=== PATIENT | female | born 1985 | race African-American/Black ===

== ENCOUNTER 2017-01-24 14:14 | Emergency (ER) | payer MEDICAID, OTHER ==
[~2017-01-24] VITALS: Ht 165.1 cm; Wt 58.0 kg
[2017-01-24 14:30] VITALS: Ht 165.1 cm; Wt 58.0 kg
--- NOTE | 2017-01-24 15:43 | ERD ---
ER Documentation Chief Complaint Date/Time DATE: 01/24/17 TIME: 15:42 Chief Complaint CAME IN VIA INTAKE AND 10 WEEKS WITH ABDOMINAL PAIN HPI 31-year-old female who is A0 approximately 10 weeks presents with left-sided pelvic pain that started approximately a week ago. She describes as achy, radiating to her back, moderate pain is worse with movement. Her last menstrual period was on November 12, she does not have a formal OB but has had a ultrasound done at an outside clinic which she states was normal. She denies any vaginal discharge that is abnormal, vaginal bleeding. She denies fevers or chills, vomiting or diarrhea. ROS All systems reviewed and are negative except as per history of present illness. Medications Home Meds Active Scripts Nitrofurantoin Monohyd Macrocr* (Macrobid*) 100 Mg Capsr, 100 MG PO BID for 5 Days, CAP Prov:DAYSI SHAVER PA-C 01/24/17 Docusate Sodium* (Colace*) 100 Mg Capsule, 100 MG PO TID, #30 CAP Prov:DAYSI SHAVER PA-C 01/24/17 PMhx/Soc Medical and Surgical Hx: pt denies Medical Hx Hx Alcohol Use: No Hx Substance Use: No Hx Tobacco Use: No Physical Exam Vitals Vital Signs Date Time Temp Pulse Resp B/P Pulse Ox O2 Delivery O2 Flow Rate FiO2 01/24/17 14:30 98.5 76 18 141/69 100 Physical Exam General: Well-developed, well-nourished. The patient appears in no acute distress. HEENT: Head is normocephalic, atraumatic. No scleral icterus. Neck: Supple. Nontender. Lungs: Clear to auscultation. Normal air movement. Heart: Regular rate and rhythm. S1 and S2 are normal. No murmurs, gallops, or rubs. Abdomen: Soft, tender in the left lower quadrant, there is no rebound pain or masses nondistended. Bowel sounds are normoactive. Extremities: No clubbing or cyanosis. Normal pulses. Moving extremities x 4. No weakness. Neurologic: Alert and oriented 3. No focal deficits. Skin: Normal turgor. No rash or lesions. Result Diagram: 01/24/17 1602 01/24/17 1602 Results 24 hrs Laboratory Tests Test 01/24/17 15:58 01/24/17 16:02 Urine Color YELLOW Urine Clarity SLIGHTLY CLOUDY Urine pH 7.0 Urine Specific [place] 1.006 Urine Ketones NEGATIVEmg/dL Urine Nitrite NEGATIVEmg/dL Urine Bilirubin NEGATIVEmg/dL Urine Urobilinogen NEGATIVEmg/dL Urine Leukocyte Esterase 2+Nolberto/ul Urine Microscopic RBC 1/HPF Urine Microscopic WBC 2/HPF Urine Squamous Epithelial Cells FEW/HPF Urine Bacteria FEW/HPF Urine Hemoglobin NEGATIVEmg/dL Urine Glucose NEGATIVEmg/dL Urine Total Protein NEGATIVEmg/dl White Blood Count 10.010^3/ul Red Blood Count 4.6910^6/ul Hemoglobin 10.4g/dl Hematocrit 35.1% Mean Corpuscular Volume 74.8fl Mean Corpuscular Hemoglobin 22.2pg Mean Corpuscular Hemoglobin Concent 29.6g/dl Red Cell Distribution Width 20.2% Platelet Count 08013^3/UL Mean Platelet Volume 10.2fl Neutrophils % 83.6% Lymphocytes % 9.4% Monocytes % 5.5% Eosinophils % 0.9% Basophils % 0.2% Nucleated Red Blood Cells % 0.0/100WBC Neutrophils # 8.310^3/ul Lymphocytes # 0.910^3/ul Monocytes # 0.610^3/ul Eosinophils # 0.110^3/ul Basophils # 0.010^3/ul Nucleated Red Blood Cells # 0.010^3/ul Sodium Level 139mmol/L Potassium Level 4.4mmol/L Chloride Level 103mmol/L Carbon Dioxide Level 24mmol/L Anion Gap 16 Blood Urea Nitrogen 6mg/dl Creatinine 0.50mg/dl Glucose Level 98mg/dl Calcium Level 9.9mg/dl Total Bilirubin 0.1mg/dl Direct Bilirubin 0.00mg/dl Indirect Bilirubin 0.1mg/dl Aspartate Amino Transf (AST/SGOT) 17IU/L Alanine Aminotransferase (ALT/SGPT) 27IU/L Alkaline Phosphatase 55IU/L Total Protein 8.8g/dl Albumin 4.7g/dl Globulin 4.10g/dl Albumin/Globulin Ratio 1.14 Lipase 55U/L DIAGNOSTIC IMAGING REPORT Patient: GREG 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 CLINICAL INDICATION: Positive test. Left pelvic pain. TECHNIQUE: Ultrasound of the pelvis was performed with transabdominal sonography in the axial and sagittal planes. COMPARISON: No prior study is available for comparison. FINDINGS: There is a single intrauterine gestational sac. pole and yolk sac are present. There is heart motion. heart rate is 166 beats per minute. [place]-rump length is 3.69 cm. Menstrual age by ultrasound dates is 10 weeks 4 days. This indicates an expected date of delivery of 08/18/2017. The right ovary appears normal measuring 3.5 x 2.4 x 2.9 cm. The left ovary is not visualized. Color Doppler and pulsed Doppler sonography demonstrate normal flow to the right ovary. There is no other pelvic mass or free fluid. IMPRESSION: 1. Single live intrauterine gestation of 10 weeks 4 days menstrual age by ultrasound dates. 2. Expected date of delivery is 08/18/2017. RPTAT: QQ .Major Saeed MD, MD Date Time Electronically viewed and signed by .Major Saeed MD, MD on 01/24/2017 16:12 .R/ CC: DAYSI SHAVER PA-C Procedures/MDM 31 year old female comes in with left sided pelvic pain, with a single live intrauterine , normal pelvic ultrasound today. All labs are normal, and physical examination is benign are ongoing for a week, likely due to constipation. Patient's urine also shows asymptomatic bacteruria. Says. No signs of acute appendicitis, diverticulitis, bowel screen, volvulus or surgical abdominal process. She is follow-up with her OB with results. Departure Diagnosis: Primary Impression: First trimester Additional Impressions: Abdominal pain UTI (urinary tract infection) Condition: Good DAYSI SHAVER PA-C Jan 24, 2017 15:43
--- NOTE | 2017-01-24 16:12 | RADRPT ---
PROCEDURE: OB Ultrasound. CLINICAL INDICATION: Positive test. Left pelvic pain. TECHNIQUE: Ultrasound of the pelvis was performed with transabdominal sonography in the axial and sagittal planes. COMPARISON: No prior study is available for comparison. FINDINGS: There is a single intrauterine gestational sac. pole and yolk sac are present. There is heart motion. heart rate is 166 beats per minute. [place]-rump length is 3.69 cm. Menstrual age by ultrasound dates is 10 weeks 4 days. This indicates an expected date of delivery of 08/18/2017. The right ovary appears normal measuring 3.5 x 2.4 x 2.9 cm. The left ovary is not visualized. Color Doppler and pulsed Doppler sonography demonstrate normal flow to the right ovary. There is no other pelvic mass or free fluid. IMPRESSION: 1. Single live intrauterine gestation of 10 weeks 4 days menstrual age by ultrasound dates. 2. Expected date of delivery is 08/18/2017. RPTAT: QQ .Major Saeed MD, MD Date Time Electronically viewed and signed by .Major Saeed MD, on 01/24/2017 16:12 .R/
[2017-01-24 16:14] LABS: ADD UMIC YES; UR ASCORBIC ACID 20 mg/dL (NEGATIVE); UR BACTERIA FEW /HPF (NONE SEEN); UR BILIRUBIN (Dip) NEGATIVE (NEGATIVE); UR BLOOD (Dip) NEGATIVE (NEGATIVE); UR CLARITY SLIGHTLY CLOUDY (CLEAR); UR COLOR YELLOW (YELLOW); UR GLUCOSE (Dip) NEGATIVE (NEGATIVE); UR KETONES (Dip) NEGATIVE (NEGATIVE); UR LEUKOCYTE ESTERASE (Dip) 2+ Leu/ul (NEGATIVE); UR NITRITE (Dip) NEGATIVE (NEGATIVE); UR RBC 1 /HPF (0-5); UR SPECIFIC GRAVITY (Dip) 1.006 (1.003-1.030); UR SQUAMOUS EPITHELIAL CELL FEW /HPF (FEW); UR TOTAL PROTEIN (Dip) NEGATIVE (NEGATIVE); UR UROBILINOGEN (Dip) NEGATIVE (NEGATIVE)
[2017-01-24 16:14] LABS: BASOPHILS % 0.2 % (0.0-2.0); EOSINOPHILS # 0.1 10^3/ul (0.0-0.5); EOSINOPHILS % 0.9 % (0.0-7.0); HEMATOCRIT 35.1 % (37.0-47.0); HEMOGLOBIN 10.4 g/dl (12.0-16.0); LYMPHOCYTES # 0.9 10^3/ul (0.8-2.9); LYMPHOCYTES % 9.4 % (15.0-51.0); MEAN CORPUSCULAR HEMOGLOBIN 22.2 pg (29.0-33.0); MEAN CORPUSCULAR HGB CONC 29.6 g/dl (32.0-37.0); MEAN CORPUSCULAR VOLUME 74.8 fl (82.0-101.0); MEAN PLATELET VOLUME 10.2 fl (7.4-10.4); MONOCYTE # 0.6 10^3/ul (0.3-0.9); MONOCYTES % 5.5 % (0.0-11.0); NEUTROPHIL # 8.3 10^3/ul (1.6-7.5); NEUTROPHILS % 83.6 % (39.0-77.0); PLATELET COUNT 311 10^3/UL (140-415); RED BLOOD COUNT 4.69 10^6/ul (4.20-5.40); RED CELL DISTRIBUTION WIDTH 20.2 % (11.5-14.5)
[2017-01-24 16:36] LABS: ALBUMIN 4.7 g/dl (3.3-4.9); ALBUMIN/GLOBULIN RATIO 1.14; BILIRUBIN,INDIRECT 0.1 mg/dl (0-1.1); BILIRUBIN,TOTAL 0.1 mg/dl (0.2-1.3); CALCIUM 9.9 mg/dl (8.4-10.2); CREATININE 0.5 mg/dl (0.44-1.00); POTASSIUM 4.4 mmol/L (3.5-5.1); TOTAL PROTEIN 8.8 g/dl (6.1-8.1)
[2017-01-24] MEDS ORDERED: DOCU-144 PO (17:27)
[2017-01-24] MEDS ORDERED: NITR-58 PO (17:27)
[2017-01-24 17:48] VITALS: BP 136/68; PULSE 72; RESP 16; TEMP 98.7
== END 2017-01-24 17:47 | disposition home or self-care (01) ==
LOC: FTE 14:14
DX: O23.41 Unspecified infection of urinary tract in pregnancy, first trimester (principal); R10.2 Pelvic and perineal pain; Z3A.10 10 weeks gestation of pregnancy
CPT/HCPCS: 76801; 80053; 81001; 83690; 84702; 85025; 86900; 86901; Z7502

== ENCOUNTER 2017-02-01 16:13 | Emergency (ER) | payer MEDICAID ==
[~2017-02-01] VITALS: Wt 58.0 kg
[~2017-02-01 16:13] MED LIST: DOCU-144 PO; NITR-58 PO
--- NOTE | 2017-02-01 21:59 | ERD ---
ER Documentation Chief Complaint Date/Time DATE: 02/01/17 TIME: 21:56 Chief Complaint lower abd pain, nausea, no vomiting, pt 11 wks pg, no vb HPI This is a 31-year-old female who is approximately 11 weeks by dates . Patient was seen here last week had an ultrasound that showed a 10 week fetus that is viable. Patient says she is not having any pelvic pain or vaginal bleeding. She states that she is here because she feels some type of bulge in her left lower quadrant /left adnexa. She says she has had it for months and months and that after she has a bowel movement she has significant pain in this left region that will last hours to a day. She says the pain is a dull and sharp pain that radiates from the left lower quadrant into the anus. She is not having any pencil stools or blood in her stool. No weight loss no fever. 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 ROS All systems reviewed and are negative except as per history of present illness. Medications Home Meds Active Scripts Nitrofurantoin Monohyd Macrocr* (Macrobid*) 100 Mg Capsr, 100 MG PO BID for 5 Days, CAP Prov:DAYSI SHAVER PA-C 01/24/17 Docusate Sodium* (Colace*) 100 Mg Capsule, 100 MG PO TID, #30 CAP Prov:DAYSI SHAVER PA-C 01/24/17 PMhx/Soc History of Surgery: No Anesthesia Reaction: No Hx Neurological Disorder: No Hx Respiratory Disorders: No Hx Cardiac Disorders: No Hx Psychiatric Problems: No Hx Miscellaneous Medical Probl: No Hx Alcohol Use: No Hx Substance Use: No Hx Tobacco Use: No Smoking Status: Never smoker FmHx Family History: No coronary disease Physical Exam Vitals Vital Signs Date Time Temp Pulse Resp B/P Pulse Ox O2 Delivery O2 Flow Rate FiO2 02/01/17 16:16 99.0 92 17 137/67 100 Physical Exam Const: Well-developed, well-nourished Head: Atraumatic, normocephalic Eyes: Normal Conjunctiva, PERRLA, EOMI, normal sclera, no nystagmus ENT: Normal External Ears, Nose and Mouth, moist mucus membranes. Neck: Full range of motion. No meningismus, no lymphadenopathy. Resp: Clear to auscultation bilaterally, no wheezing, rhonchi, rales Cardio: Regular rate and rhythm, no murmurs, S1 S2 present Abd: Soft, there is a palpable solid-like mass in the region where the left adnexa meets the left lower quadrant. It is tender to palpation. non distended. Normal bowel sounds, no guarding or rebound, no pulsitile abdominal masses or bruits Skin: No petechiae or rashes, no ecchymosis , no maculopapular rash Back: No midline or flank tenderness Ext: No cyanosis, or edema, FROM x 4, normal inspection, neurovascularly intact x 4 Neur: Awake and alert, STR 5/5 x 4, sensation intact x 4, no focal findings, cerebellum intact Psych: Normal Mood and Affect Procedures/MDM We will get MRI of abdomen of this area to see if this is an ovarian cyst which it could be even though the charge loader could not pick it up on her sonogram. The other possibilities this could be a fallopian tube mass or could be a colon mass I feel getting a sonogram will not tell us the true picture and will go to MRI now. Do not feel she needs any type of workup for threatened miscarriage is not having any pelvic pain or vaginal bleeding cramps PROCEDURE: MR PELVIS WITHOUT CONTRAST CLINICAL INDICATION: 31 years of age, female. Left lower quadrant mass TECHNIQUE: MRI of the pelvis was performed without intravenous contrast. The following sequences were performed: Sagittal and coronal T2, axial T2 with and without fat suppression, axial T1 GRE in and out of phase, axial T1 GRE with fat suppression and axial DWI. Images were reviewed on a high-resolution PACS workstation. COMPARISON: Obstetrical ultrasound January 24, 2017 FINDINGS: Uterus: Appearance: 3.4 x 4.6 x 3.6 cm well circumscribed T2 hypointense mass at the fundus likely represents a transmural fibroid (06/28). There is a 2.4 x 3.1 cm well circumscribed T2 hypointense mass in the posterior uterine body that may represent another fibroid (08/06). Myometrium is otherwise normal. Cervix is closed. Position: Anteverted Size: 8.3 x 8.2 x 10.7 cm. Endometrial stripe: There is an intrauterine with an intrauterine gestational sac and embryo. The placenta is forming on the anterior aspect of the uterus. Right ovary and adnexa: Not well visualized. However, the right ovary was normal on the recent obstetrical ultrasound. Left ovary and adnexa: There is a 5.7 x 9.2 x 7.5 cm well circumscribed mass in the left adnexa in keeping with the mature teratoma (dermoid cyst) (03/06). It is contains macroscopic and microscopic fat that is hyperintense on T1 and loses signal intensity on out of phase T1 and loses signal with fat suppression. Without intravenous contrast, the study does not evaluate for internal enhancement. Free fluid: None Bladder: Normal noncontrast appearance. Bowel: Unremarkable appearance. Vasculature: Normal noncontrast appearance. Lymph Nodes: No enlarged lymph nodes. Abdominal Wall: Normal. Musculoskeletal: No suspicious bone lesions. IMPRESSION: 1. 9.2 cm complex cystic mass left adnexa contains macroscopic and microscopic fat in keeping with a dermoid cyst (mature teratoma). Recommend surgical removal. 2. Right ovary is not visualized with MRI but appears normal on recent obstetrical ultrasound. 3. Intrauterine . 4. Uterine fibroids. There are two T2 hypointense myometrial masses in keeping with fibroids measuring up to 4.6 cm. RPTAT: HCTS Physician Master Date Time Electronically viewed and signed by Physician Master on 02/01/2017 22: 30 CS/ CC: LORETO REYNAGA DO Departure Diagnosis: Primary Impression: Dermoid cyst of left ovary Condition: Stable LORETO REYNAGA DO Feb 01, 2017 21:59
--- NOTE | 2017-02-01 22:30 | RADRPT ---
AMENDMENT: 02/01/2017 10:43:21 PM Keisha Andre M.D Comparison is made to the MRI abdomen performed with the MRI pelvis. The T2 hypointense areas within the myometrium thought to represent fibroids likely represent transition myometrial contractions. The right ovary is visualized on the abdomen MRI and appears normal. PROCEDURE: MR PELVIS WITHOUT CONTRAST CLINICAL INDICATION: 31 years of age, female. Left lower quadrant mass TECHNIQUE: MRI of the pelvis was performed without intravenous contrast. The following sequences w ere performed: Sagittal and coronal T2, axial T2 with and without fat suppression, axial T1 GRE in a nd out of phase, axial T1 GRE with fat suppression and axial DWI. Images were reviewed on a high-res olution PACS workstation. COMPARISON: Obstetrical ultrasound January 24, 2017 FINDINGS: Uterus: Appearance: 3.4 x 4.6 x 3.6 cm well circumscribed T2 hypointense mass at the fundus likely represent s a transmural fibroid (06/28). There is a 2.4 x 3.1 cm well circumscribed T2 hypointense mass in the posterior uterine body that may represent another fibroid (08/06). Myometrium is otherwise normal. Cervix is closed. Position: Anteverted Size: 8.3 x 8.2 x 10.7 cm. Endometrial stripe: There is an intrauterine with an intrauterine gestational sac and embr yo. The placenta is forming on the anterior aspect of the uterus. Right ovary and adnexa: Not well visualized. However, the right ovary was normal on the recent obstetrical ultrasound. Left ovary and adnexa: There is a 5.7 x 9.2 x 7.5 cm well circumscribed mass in the left adnexa in keeping with the mature teratoma (dermoid cyst) (03/06). It is contains macroscopic and microscopic fat that is hyperintense on T1 and loses signal intensity on out of phase T1 and loses signal with fat suppression. Without intravenous contrast, the study does not evaluate for internal enhancement. Free fluid: None Bladder: Normal noncontrast appearance. Bowel: Unremarkable appearance. Vasculature: Normal noncontrast appearance. Lymph Nodes: No enlarged lymph nodes. Abdominal Wall: Normal. Musculoskeletal: No suspicious bone lesions. IMPRESSION: 1. 9.2 cm complex cystic mass left adnexa contains macroscopic and microscopic fat in keeping with a dermoid cyst (mature teratoma). Recommend surgical removal. 2. Right ovary is not visualized with MRI but appears normal on recent obstetrical ultrasound. 3. Intrauterine . 4. Uterine fibroids. There are two T2 hypointense myometrial masses in keeping with fibroids measuri ng up to 4.6 cm. RPTAT: HCTS Jovanny Andre Physician Date Time Electronically viewed and signed by Jovanny Andre Physician on 02/01/2017 22:44 CS/
--- NOTE | 2017-02-01 22:42 | RADRPT ---
Preliminary Report PROCEDURE: MRI ABDOMEN WITHOUT CONTRAST CLINICAL INDICATION: 31 years of age, female. Left lower quadrant mass TECHNIQUE: An MRI study was performed without intravenous contrast. The following sequences were per formed: Axial and coronal SS-T2 FSE, axial SS-T2FSE with fat suppression, axial T1 gradient echo in and out of phase, axial DWI, axial T1 gradient echo with fat suppression. COMPARISON: Pelvic MRI from the same day and obstetrical ultrasound January 24, 2017 FINDINGS: Lung bases: Normal. Liver: Two sub centimeter cysts in the superior right lobe. Otherwise no focal lesions. Negative for significant fatty infiltration. Gall Bladder: Normal. Bile Ducts: No intrahepatic or extrahepatic biliary duct dilatation. Pancreas: Normal noncontrast appearance. No dilatation of the pancreatic duct. Spleen: Normal noncontrast appearance. Adrenal glands: Normal. Kidneys: Normal noncontrast appearance. Vasculature: Normal noncontrast appearance. Lymph nodes: No enlarged lymph nodes. Bowel: Prominent loop of small bowel in the right lower quadrant is likely due to localized dysmoti lity. Bowel is otherwise unremarkable. Appendix is not visualized. Pelvic organs: There is an intrauterine with an intrauterine gestational sac and embryo be tter evaluated on same day pelvic MRI. There are transition myometrial contraction that resembles a uterine fibroids on pelvic MRI. There is a 9.1 cm complex cystic mass in the left adnexa arising fro m the left ovary that contains fat in keeping with a mature teratoma (dermoid). Right ovary is visua lized and appears normal. It measures 1.5 x 2.5 x 3.7 cm. Peritoneal space: No free fluid. Abdominal wall: Normal. Musculoskeletal: No suspicious bone lesions. IMPRESSION: 1. 9 cm complex cystic mass left adnexa containing fat is in keeping with the mature teratoma (derm oid cyst) of the left ovary. 2. Intrauterine . There are transition myometrial contractions in the myometrium. 3. No significant abnormality is identified in the upper abdomen. RPTAT: HCTS Physician Master Date Time Electronically viewed and signed by Jovanny Andre Physician on 02/01/2017 22:42 CS/
[2017-02-01 23:04] VITALS: BP 125/78; PULSE 113; RESP 16
== END 2017-02-01 23:05 | disposition home or self-care (01) ==
LOC: FTE 16:13
DX: O34.81 Maternal care for other abnormalities of pelvic organs, first trimester (principal); D27.1 Benign neoplasm of left ovary; Z3A.11 11 weeks gestation of pregnancy
CPT/HCPCS: 72195; 74181; Z7502; 99283

== ENCOUNTER 2017-07-15 12:17 | Emergency (ER) | END 2017-07-15 14:34 | disposition home or self-care (01) ==

== ENCOUNTER 2017-07-15 14:41 | Outpatient (CLI) | END 2017-07-15 16:55 | disposition home or self-care (01) ==

== ENCOUNTER 2017-08-09 03:58 | Inpatient (IN) | END 2017-08-11 15:02 | disposition home or self-care (01) | DRG 775 ==

== ENCOUNTER 2018-07-10 14:12 | Emergency (ER) | payer OTHER ==
[~2018-07-10] VITALS: Ht 167.6 cm; Wt 65.0 kg
[~2018-07-10 14:12] MED LIST changes: -NITR-58 PO
[2018-07-10 14:39] VITALS: Ht 167.6 cm; Wt 65.0 kg
[2018-07-10] MEDS ORDERED: PHENAZOPYRIDINE 100 MG TAB PO ONE (19:00)
[2018-07-10] MEDS ORDERED: ACETAMINOPHEN 325 MG TAB PO ONE (19:00)
[2018-07-10] MEDS ORDERED: CEPHALEXIN 500 MG CAP PO ONE (19:00)
[2018-07-10] MEDS ORDERED: CEPH-443 PO (19:17)
[2018-07-10] MEDS ORDERED: PHEN-538 PO (19:17)
[2018-07-10] MEDS ORDERED: IBUP-1542 PO (19:17)
--- NOTE | 2018-07-10 19:19 | ERD ---
ER Documentation Chief Complaint Chief Complaint painful urination w/pelvic pain x3 days, denies -n/v/d HPI 33-year-old female presents with dysuria and pelvic pain for last 3 days. Pain is on the left side. She has pain with movement. She has been diagnosed possibly with a dermoid cyst during her last year although one-point they did not visualize it. She is uncertain if it persist or if it is a confirmed dermoid. She denies fevers, vomiting, flank pain. She is approximate 11 months . She was told she had a dermoid which is 9 cm approximat daphne 11 months ago. ROS All systems reviewed and are negative except as per history of present illness. Medications Home Meds Active Scripts Phenazopyridine Hcl* (Pyridium*) 200 Mg Tab, 200 MG PO TID PRN for URINARY PAIN, #6 TAB Prov:PIERO WLILS MD 07/10/18 Cephalexin* (Keflex*) 500 Mg Capsule, 500 MG PO QID for 5 Days, CAP Prov:PIERO WILLS MD 07/10/18 Ibuprofen* (Motrin*) 600 Mg Tab, 600 MG PO Q6, #20 TAB Prov:PIERO WILLS MD 07/10/18 Docusate Sodium* (Colace*) 100 Mg Capsule, 100 MG PO TID, #30 CAP Prov:DAYSI SHAVER PA-C 01/24/17 Allergies Allergies: Coded Allergies: No Known Allergy (Unverified , 08/09/17) PMhx/Soc Medical and Surgical Hx: pt denies Medical Hx, pt denies Surgical Hx History of Surgery: No Anesthesia Reaction: No Hx Neurological Disorder: No Hx Respiratory Disorders: No Hx Cardiac Disorders: No Hx Psychiatric Problems: No Hx Miscellaneous Medical Probl: No Hx Alcohol Use: No Hx Substance Use: No Hx Tobacco Use: No Smoking Status: Never smoker FmHx Family History: No diabetes, No coronary disease, No other Physical Exam Vitals Vital Signs Date Temp Pulse Resp B/P (MAP) Pulse Ox O2 O2 Flow FiO2 Time Delivery Rate 07/10/18 97.8 90 18 135/99 100 14:39 (111) Physical Exam Const: No acute distress Head: Atraumatic Eyes: Normal Conjunctiva ENT: Normal External Ears, Nose and Mouth. Neck: Full range of motion. No meningismus. Resp: Clear to auscultation bilaterally Cardio: Regular rate and rhythm, no murmurs Abd: Soft, normal left lower quadrant tenderness. No rebound. No tenderness McBurney's point no Ibrahim sign., non distended. Normal bowel sounds Skin: No petechiae or rashes Back: No midline or flank tenderness Ext: No cyanosis, or edema Neur: Awake and alert Psych: Normal Mood and Affect Results 24 hrs Laboratory Tests Test 07/10/18 16:52 07/10/18 16:57 Urine Color YELLOW Urine Clarity CLEAR Urine pH 5.0 Urine Specific [place] 1.011 Urine Ketones NEGATIVE mg/dL Urine Nitrite NEGATIVE mg/dL Urine Bilirubin NEGATIVE mg/dL Urine Urobilinogen NEGATIVE mg/dL Urine Leukocyte Esterase TRACE Nolberto/ul Urine Microscopic RBC 0 /HPF Urine Microscopic WBC 3 /HPF Urine Squamous Epithelial Cells FEW /HPF Urine Hemoglobin NEGATIVE mg/dL Urine Glucose NEGATIVE mg/dL Urine Total Protein NEGATIVE mg/dl POC Beta HCG, Qualitative NEGATIVE Current Medications Medications Dose Sig/[place] Start Time Status Last (Trade) Ordered Route PRN Stop Time Admin Dose Reason Admin Cephalexin 500 mg ONCE ONCE 07/10/18 DC (Keflex) PO 19:00 07/10/18 19:01 650 mg ONCE ONCE 07/10/18 DC Acetaminophen PO 19:00 (Tylenol 07/10/18 19:01 Tab) 200 mg ONCE ONCE 07/10/18 DC Phenazopyridi PO 19:00 ne HCl 07/10/18 19:01 (Pyridium) Procedures/MDM HCG negative. Urine shows leukocyte esterase. Patient was given Keflex, Pyridium and Tylenol. Pelvic ultrasound shows approximately 10 cm dermoid dermoid with Doppler flow identified to the left ovary. Patient had minimal tenderness on serial exam is amatory without significant tenderness. Patient has no signs or symptoms to suggest torsion given the minimal pain. Patient was advised on the importance of having her dermoid treated given its size. Patient does have a primary doctor and I advised her to see her primary doctor this week for evaluation for a [employer] referral. Should return for fevers, worsening pain, bleeding, vomiting, new worsening symptoms otherwise primary doctor and [facility] as directed. we will treat with Keflex, Pyridium and Motrin for UTI. The patient was stable with no new complaints during the ER course. Clinically, there is no current evidence to suggest meningitis, sepsis, acute abdomen, pneumonia, stroke, acute coronary syndrome, pulmonary embolism, aortic dissection or any other emergent condition appearing to require further evaluation or hospitalization. Patient counseled regarding my diagnostic impression and care plan. Prior to discharge all questions answered. Pt agrees with treatment plan and understands strict return precautions. Pt is instructed to follow up with primary care provider within 24-48 hours. Precautionary instructions provided including instructions to return to the ER if not improving or for any worsening or changing symptoms or concerns. Departure Diagnosis: Primary Impression: Dermoid Additional Impression: UTI (urinary tract infection) Urinary tract infection type: acute cystitis Hematuria presence: without hematuria Qualified Codes: N30.00 - Acute cystitis without hematuria Condition: Stable Patient Instructions: Understanding Urinary Tract Infections (UTIs), Tumor, Uncertain Cause Additional Instructions: Ultrasound confirms a large dermoid cyst which will continue to grow and cause m ore symptoms. Recommend [employer] OPERATOR evaluation. Likely need authorization from primary doctor for surgical removal. Recheck for worsening pain, fevers, vomiting, new worsening symptoms. PIERO WILLS MD Jul 10, 2018 19:19
[2018-07-10] MEDS ORDERED: IBUPROFEN 600 MG TAB PO ONE (19:30)
[2018-07-10 19:39] VITALS: BP 133/72; PULSE 84; RESP 18
== END 2018-07-10 19:40 | disposition home or self-care (01) ==
LOC: FTE 14:12
DX: N83.202 Unspecified ovarian cyst, left side (principal); N30.00 Acute cystitis without hematuria
CPT/HCPCS: 76856; 81001; 81025; Z7502; Z7610